=== PATIENT | male | born 1955 | race African-American/Black ===

== ENCOUNTER 2020-03-13 11:50 | Emergency (ER) | payer SELFPAY ==
[2020-03-13] MEDS ORDERED: Ketorolac Tromethamine 30 MG/ML VIAL ONE (12:38)
== END 2020-03-13 13:02 | disposition home or self-care (01) ==
LOC: ERS 11:50
DX: M54.41 Lumbago with sciatica, right side (principal); F41.9 Anxiety disorder, unspecified; F32.9 Major depressive disorder, single episode, unspecified; F17.210 Nicotine dependence, cigarettes, uncomplicated; Z79.82 Long term (current) use of aspirin
CPT/HCPCS: 96372; 99283; J1885